=== PATIENT | female | born 1990 | race Hispanic/Latino ===

== ENCOUNTER 2016-09-18 12:47 | Emergency (ER) | payer BC ==
--- NOTE | 2016-09-18 13:44 | ED PDOC ---
HPI: General Adult Time Seen by Provider: 09/18/16 13:27 Chief Complaint (Nursing): Chemical Exposure Chief Complaint (Provider): CO exposure History Per: Patient Additional Complaint(s): 25-year-old female with no past medical history presents to emergency department for evaluation status post exposure to carbon monoxide. Patient states that she noticed a bizarre odor in her home last night. She contacted [email or web address] and they came to her home and detected carbon monoxide. The source of the CO was located and turned off. Patient was advised to come to ED for further evaluation. Patient has slight headache upon arrival but states that she had wine last night which usually causes her to have headache the next day. She rates headache as 4/10. She denies any chest pain or shortness of breath, no dizziness or vision changes. Past Medical History Reviewed: Historical Data, Nursing Documentation, Vital Signs Vital Signs: Last Vital Signs Temp 98.3 F 09/18/16 15:58 Pulse 72 09/18/16 15:58 Resp 16 09/18/16 15:58 BP 115/67 09/18/16 15:58 Pulse Ox 100 09/18/16 15:58 - Medical History PMH: No Chronic Diseases - Surgical History Surgical History: No Surg Hx - Family History Family History: States: No Known Family Hx - Living Arrangements Living Arrangements: With Friends/Others - Social History Current smoker - smoking cessation education provided: No Alcohol: Social Drugs: Denies - Allergies Allergies/Adverse Reactions: Allergies Allergy/AdvReac Type Severity Reaction Status Date / Time No Known Allergies Allergy Verified 09/18/16 13:17 Review of Systems ROS Statement: Except As Marked, All Systems Reviewed And Found Negative Constitutional: Positive for: Other (exposure to CO) Eyes: Negative for: Vision Change Cardiovascular: Negative for: Chest Pain Respiratory: Negative for: Cough Gastrointestinal: Negative for: Nausea, Vomiting Neurological: Positive for: Headache (slight). Negative for: Dizziness Physical Exam - Reviewed Nursing Documentation Reviewed: Yes Vital Signs Reviewed: Yes - Physical Exam Appears: Positive for: Well, Non-toxic, No Acute Distress Skin: Negative for: Rash Eye Exam: Positive for: Normal appearance, EOMI, PERRL Cardiovascular/Chest: Positive for: Regular Rate, Rhythm Respiratory: Positive for: Normal Breath Sounds. Negative for: Accessory Muscle Use, Rales, Rhonchi, Wheezing, Respiratory Distress Neurologic/Psych: Positive for: Alert, Oriented - ECG O2 Sat by Pulse Oximetry: 99 Pulse Ox Interpretation: Normal Medical Decision Making Medical Decision Making: Impression: CO exposure Plan: High flow oxygen ABG CO is 2.6 - slightly elevated. Case was d/w Dr. Ladd - patient was placed on O2 for 2 hours in ED. Patient was instructed to monitor symptoms closely and return to ED at any time if acutely worse, otherwise to follow up with primary doctor in 2-3 days. Disposition - Clinical Impression Clinical Impression: Carbon monoxide exposure - Patient ED Disposition Is Patient to be Admitted: No Counseled Patient/Family Regarding: Studies Performed, Diagnosis, Need For Followup - Disposition Referrals: [facility] [Outside] Disposition: Routine/Home Disposition Time: 15:23 Condition: STABLE Additional Instructions: Follow-up with primary doctor in 2-3 days or return to ED any time if acutely worse. Instructions: Carbon Monoxide Poisoning (ED) Results - Lab Results Lab Results: 09/18/16 14:14 pCO2 38 pO2 95 HCO3 29.1 H ABG pH 7.49 H ABG Total CO2 30.2 H ABG O2 Saturation 100.4 H ABG O2 Content 17.0 ABG Base Excess 5.4 H ABG Hemoglobin 12.6 ABG Carboxyhemoglobin 2.6 H POC ABG HHb (Measured) -0.4 L ABG Methemoglobin 2.3 ABG O2 Capacity 16.9 Chaka Test Yes A-a O2 Difference 7.0 Hgb O2 Saturation 95.5 FiO2 21.0
[2016-09-18 14:17] LABS: ABG ALLEN TEST YES; ARTERIAL BLOOD GAS HCO3 29.1 mmol/L (21-28); ARTERIAL BLOOD GAS O2 CAPACITY 16.9 mL/dL (16-24); ARTERIAL BLOOD GAS PH 7.49 (7.35-7.45); ARTERIAL BLOOD GAS PO2 95 mm/Hg (80-100); ARTERIAL BLOOD HGB O2 SAT 95.5 % (95.0-98.0); CARBOXYHEMOGLOBIN 2.6 % (0.5-1.5); HHB -0.4 % (0.0-5.0); METHEMOGLOBIN 2.3 % (0.0-3.0)
[2016-09-18 15:59] VITALS: BP 115/67; PULSE 72; RESP 16; TEMP 98.3
[2016-09-18 16:57] VITALS: O2SAT 99
== END 2016-09-18 16:12 | disposition home or self-care (01) ==
LOC: H.ER 12:47
DX: T58.91XA Toxic effect of carbon monoxide from unspecified source, accidental (unintentional), initial encounter (principal); Z77.098 Contact with and (suspected) exposure to other hazardous, chiefly nonmedicinal, chemicals